=== PATIENT | male | born 1945 | race Caucasian/White ===

== ENCOUNTER 2019-07-09 13:43 | Outpatient (CLI) | payer MEDICARE, OTHER ==
--- NOTE | 2019-07-10 11:10 | DEXA Report ---
Reason: CHRONIC BACK PAIN,OSTEOPOROSIS Procedure Date: 07/09/2019 Accession Number: [id number] / [id number] Procedure: DEX - Dexa Spine and/or Hip CPT Code: Final Report FULL RESULT: EXAM: Dexa Spine and/or Hip DATE: 07/09/2019 2:50 PM CLINICAL HISTORY: CHRONIC BACK PAIN,OSTEOPOROSIS TECHNIQUE: Dual energy x-ray absorptiometry (DXA) was performed on a [employer] System. Regions measured are the AP Spine, femoral neck, and if needed forearm. COMPARISON: None. In accordance with the International Society for Clinical Densitometry (ISCD) guidelines, data from previous exams may be reanalyzed using current recommendations and techniques. This is done to allow a more accurate basis for comparison with the current study. FINDINGS: The data for the lumbar spine is as follows: BMD (g/cm/cm) T-SCORE Z-SCORE REGION L1 1.830 5.6 5.5 L2 2.041 6.7 6.6 L3 2.200 8.0 7.9 L4 2.236 8.3 8.2 TOTAL 2.096 7.3 7.2 NOTE: All evaluable vertebrae are used for classification The data for the hip is as follows: BMD (g/cm/cm) T-SCORE Z-SCORE REGION Neck 1.342 2.1 3.0 TOTAL 1.266 1.1 1.6 NOTE: The femoral neck or total proximal femur, whichever is lowest, is used for classification. IMPRESSION: THE WHO CLASSIFICATION BASED ON THE INTERNATIONAL REFERENCE STANDARD IS NORMAL. THE FRACTURE RISK IS NOT INCREASED. RECOMMENDATION: Patients with diagnosis of osteoporosis or osteopenia should have regular bone mineral density assessment. For those eligible for Medicare, routine testing is allowed once every 2 years. Testing frequency can be increased for patients who have rapidly progressing disease or for those who are receiving medical therapy to restore bone mass. COMMENT: World Health Organization (WHO) definitions for osteoporosis and osteopenia: NORMAL BMD: T-score at -1.0 or higher, fracture risk is low OSTEOPENIA BMD: T-score between -1.0 and -2.5, fracture risk is increased. OSTEOPOROSIS BMD: T-score at -2.5 or lower, fracture risk is high. National Osteoporosis Foundation recommends: 1. Obtain adequate dietary calcium (at least 1200 mg per day) and vitamin D (400-800 international units per day). 2. Participate, as appropriate, in regular weightbearing and muscle-strengthening exercise. 3. Avoid tobacco use and reduce alcohol and caffeine intake. 4. For more detailed information see the website at www.NOF.org.
== END 2019-07-09 13:44 | disposition home or self-care (01) ==
LOC: DI 13:43
PROVIDERS: ATTEND Internal Medicine Infectious Disease
DX: M81.8 Other osteoporosis without current pathological fracture (principal); M54.9 Dorsalgia, unspecified; G89.29 Other chronic pain
CPT/HCPCS: 77080

== ENCOUNTER 2020-12-15 10:53 | Outpatient (CLI) | payer MEDICARE, OTHER ==
[2020-12-15 11:20] LABS: CALCIUM 9.3 mg/dL (8.5-10.3); POTASSIUM 4.2 mmol/L (3.5-5.0)
== END 2020-12-15 10:54 | disposition home or self-care (01) ==
LOC: LAB 10:53
PROVIDERS: ATTEND Internal Medicine Cardiovascular Disease
DX: I15.9 Secondary hypertension, unspecified (principal)
CPT/HCPCS: 36415; 80048

== ENCOUNTER 2022-06-25 13:12 | Outpatient (CLI) | payer MEDICARE, OTHER ==
[2022-06-25 13:40] LABS: BASOPHILS % (AUTO) 0.6 %; EOSINOPHILS # (AUTO) 0.1 10^3/uL (0.0-0.7); EOSINOPHILS % (AUTO) 1.2 %; HCT - HEMATOCRIT 36.3 % (42.0-52.0); HGB - HEMOGLOBIN 11.3 g/dL (14.0-18.0); LYMPHOCYTES # (AUTO) 2.1 10^3/uL (1.5-3.5); LYMPHOCYTES % (AUTO) 41.6 %; MEAN CORPUSCULAR HEMOGLOBIN 21.4 pg (27.0-31.0); MEAN CORPUSCULAR HGB CONC 31.1 g/dL (32.0-36.0); MEAN CORPUSCULAR VOLUME 68.9 fL (80.0-94.0); MEAN PLATELET VOLUME 9.1 fL (7.4-11.4); MONOCYTES # (AUTO) 0.4 10^3/uL (0.0-1.0); MONOCYTES % (AUTO) 7.8 %; NEUTROPHILS # (AUTO) 2.5 10^3/uL (1.5-6.6); NEUTROPHILS % (AUTO) 48.6 %; PLT - PLATELET COUNT 286 10^3/uL (130-450); RED BLOOD COUNT 5.27 10^6/uL (4.70-6.10); RED CELL DISTRIBUTION WIDTH 16.2 % (12.0-15.0); WHITE BLOOD COUNT 5.2 x10^3/uL (4.8-10.8)
[2022-06-25 14:00] LABS: ALBUMIN 4.5 g/dL (3.2-5.5); ALBUMIN/GLOBULIN RATIO 1.7 (1.0-2.2); ALKALINE PHOSPHATASE 55 IU/L (42-121); ALT ALANINE AMINOTRANSFERASE 28 IU/L (10-60); AST ASPARTATE AMINOTRANSFERASE 28 IU/L (10-42); BILIRUBIN,TOTAL 0.6 mg/dL (0.2-1.0); BUN - BLOOD UREA NITROGEN 19 mg/dL (6-20); CALCIUM 9.4 mg/dL (8.5-10.3); CARBON DIOXIDE - CO2 26 mmol/L (21-32); CHLORIDE 104 mmol/L (101-111); CHOL/HDL RATIO 3.8 (<5.0); CHOLESTEROL 220 mg/dL; CREATININE 1.1 mg/dL (0.6-1.2); GFR - MDRD 65 (>89); GLUCOSE 125 mg/dL (70-100); HDL CHOLESTEROL 58 mg/dL; LDL CHOLESTEROL,CALCULATED 105 mg/dL; LDL/HDL RATIO 1.8 (<3.6); POTASSIUM 4.1 mmol/L (3.5-5.0); SODIUM 139 mmol/L (135-145); TOTAL PROTEIN 7.2 g/dL (6.7-8.2); TRIGLYCERIDES 283 mg/dL; VLDL CHOLESTEROL 57 mg/dL
[2022-06-28 10:09] LABS: HIV-1 RNA BY PCR QUANT <20 copies/mL (.)
== END 2022-06-25 13:13 | disposition home or self-care (01) ==
LOC: LAB 13:12
PROVIDERS: ATTEND Internal Medicine Infectious Disease
DX: I10 Essential (primary) hypertension (principal); R35.1 Nocturia; Z21 Asymptomatic human immunodeficiency virus [HIV] infection status
CPT/HCPCS: 36415; 80053; 80061; 81599; 83721; 84153; 85025; 86360; 87536

== ENCOUNTER 2022-07-23 11:43 | Outpatient (CLI) | payer MEDICARE, OTHER ==
--- NOTE | 2022-07-24 10:02 | XRAY Report ---
PROCEDURE: Hip w/Pelvis 1V LT INDICATIONS: L HIP PX TECHNIQUE: AP pelvis with lateral view(s) of the left hip(s). COMPARISON: None. FINDINGS: Bones: No fractures or dislocations. Pelvic ring appears intact. No suspicious bony lesions. Ther e is moderate hip joint degeneration bilaterally. This moderate degenerative disc and facet disease i n the lower lumbar spine. Soft tissues: The visualized bowel gas pattern is normal. No suspicious soft tissue calcifications. IMPRESSION: 1. Mild degenerative joint disease.. Reviewed by: Bekah Daniel MD on 07/24/2022 10:01 AM [facility] Approved by: Bekah Daniel MD on 07/24/2022 10:01 AM [facility] Station ID: [id number]
== END 2022-07-23 23:59 | disposition home or self-care (01) ==
LOC: DI.N 11:43
PROVIDERS: ATTEND Physician Assistant
DX: M16.0 Bilateral primary osteoarthritis of hip (principal)

== ENCOUNTER 2022-09-19 06:38 | Emergency (ER) | payer MEDICARE, OTHER ==
--- NOTE | 2022-09-19 07:01 | ED Physician Documentation ---
History of Present Illness - Stated complaint Stated Complaint: CODE STROKE - Chief complaint Chief Complaint: Neuro - History obtained from History obtained from: Patient, Family (), EMS - Additonal information Additional information: 77-year-old man with past medical history of hypertension hyperlipidemia and HIV, presents with left upper extremity weakness and left facial droop found in the bathroom at 5:30 AM by his spouse. Last seen normal 9:30 PM. Per spouse, patientHas been suffering from sore throat/cold for the past 2 nights has been on NyQuil. Patient normally gets up to go to the bathroom at nighttime but spouse heard a loud thump in the bathroom at 5:30 AM, went in and found the patient crumpled on the floor, confused appearing with urine on himself.Patient rapidly improved in consciousness and was ANO x2 upon EMS arrival but had distinct left facial droop and left upper extremity drift. Upon arrival to the ED EMS reported that his left-sided drift was improving more. Review of Systems Unable to obtain: Other (not obtainable due to patient acuity) PD PAST MEDICAL HISTORY - Past Medical History Cardiovascular: Arrhythmia - Past Surgical History General: Appendectomy - Present Medications Home Medications: Ambulatory Orders Medication Instructions Recorded Confirmed Losartan [Cozaar] 50 mg PO DAILY 08/18/15 09/19/22 Amlodipine Besylate [Norvasc] 10 mg PO DAILY 09/19/22 09/19/22 Emtricitabine/Tenofov Alafenam 1 tab PO DAILY 09/19/22 09/19/22 [Descovy 200-25 mg Tablet] Fenofibrate [Tricor] 48 mg PO DAILY 09/19/22 09/19/22 - Allergies Allergies/Adverse Reactions: Allergies Allergy/AdvReac Type Severity Reaction Status Date / Time No Known Drug Allergies Allergy Verified 09/19/22 06:57 - Social History Does the pt smoke?: No Smoking Status: Never smoker Does the pt drink ETOH?: Yes Does the pt have substance abuse?: No - Immunizations Immunizations are current?: Yes PD ED PE NORMAL - Vitals Vital signs reviewed: Yes - General General: Alert and oriented X 3, No acute distress, Well developed/nourished - HEENT HEENT: Atraumatic, PERRL, EOMI - Cardiac Cardiac: RRR - Respiratory Respiratory: No respiratory distress, Clear bilaterally - Derm Derm: Normal color, Warm and dry - Neuro Neuro: Alert and oriented X 3, Other (NIHSS 2 - L facial droop, LUE drift. ) Eye Opening: Spontaneous Motor: Obeys Commands Verbal: Oriented GCS Score: 15 - Psych Psych: Normal mood, Normal affect Results - Vitals Vitals: Vital Signs - 24 hr 09/19/22 06:41 Temperature 36.9 C Heart Rate 63 Respiratory 14 Rate Blood Pressure 124/56 L O2 Saturation 98 Oxygen O2 Source Room air - Labs Labs: Laboratory Tests 09/19/22 09/19/22 06:59 06:59 WBC 6.4 RBC 4.98 Hgb 10.6 L Hct 33.8 L MCV 67.9 L MCH 21.3 L MCHC 31.4 L RDW 16.2 H Plt Count 228 MPV 9.4 Neut # (Auto) 4.8 Lymph # (Auto) 1.0 L [place] # (Auto) 0.5 Eos # (Auto) 0.0 Baso # (Auto) 0.0 Absolute Nucleated RBC 0.00 Nucleated RBC % 0.0 PT 12.2 INR 1.1 PD Medical Decision Making - ED course ED course: d/w Dr. Venegas, telestroke - patient not a candidate for tpa or thrombectomy given low NIHSS and improving symptoms. Consider possible seizure as possibility. Outpatient EEG may be indicated. MRI with and without contrast, also MRA recommended. Patient endorsed to Dr. Osman Babin for further management and care. - Critical Care Time(min): 30 Time Includes: Direct patient care, Review records, Reassess patient, Document care, Coordinate care, Medical consult (d/w neurology), Family consult for tx dec Data interpretation: Labs
[2022-09-19 07:10] LABS: BASOPHILS % (AUTO) 0.5 %; EOSINOPHILS % (AUTO) 0.2 %; HCT - HEMATOCRIT 33.8 % (42.0-52.0); HGB - HEMOGLOBIN 10.6 g/dL (14.0-18.0); LYMPHOCYTES % (AUTO) 15.9 %; MEAN CORPUSCULAR HEMOGLOBIN 21.3 pg (27.0-31.0); MEAN CORPUSCULAR HGB CONC 31.4 g/dL (32.0-36.0); MEAN CORPUSCULAR VOLUME 67.9 fL (80.0-94.0); MEAN PLATELET VOLUME 9.4 fL (7.4-11.4); MONOCYTES # (AUTO) 0.5 10^3/uL (0.0-1.0); MONOCYTES % (AUTO) 8.2 %; NEUTROPHILS # (AUTO) 4.8 10^3/uL (1.5-6.6); NEUTROPHILS % (AUTO) 74.9 %; PLT - PLATELET COUNT 228 10^3/uL (130-450); RED BLOOD COUNT 4.98 10^6/uL (4.70-6.10); RED CELL DISTRIBUTION WIDTH 16.2 % (12.0-15.0); WHITE BLOOD COUNT 6.4 x10^3/uL (4.8-10.8)
[2022-09-19] MEDS ORDERED: ASPIRIN 325 MG TABLET PO STA (07:16)
[2022-09-19 07:18] LABS: INR 1.1 (0.8-1.2); PT - PROTHROMBIN TIME 12.2 secs (9.9-12.6)
[2022-09-19 07:26] LABS: ALBUMIN 3.9 g/dL (3.2-5.5); ALBUMIN/GLOBULIN RATIO 1.3 (1.0-2.2); BILIRUBIN,TOTAL 0.6 mg/dL (0.2-1.0); CALCIUM 8.4 mg/dL (8.5-10.3); CREATININE 1.4 mg/dL (0.6-1.2); POTASSIUM 3.9 mmol/L (3.5-5.0); TOTAL PROTEIN 6.9 g/dL (6.7-8.2)
[2022-09-19] MEDS ORDERED: TETANUS/DIPHTHERIA/PERTUSSIS 0.5 ML SYRINGE IM ONE (07:29)
--- NOTE | 2022-09-19 08:32 | CT Report ---
PROCEDURE: Head W/O Stroke Protocol INDICATIONS: Neuro deficit, acute, stroke suspected TECHNIQUE: Noncontrast 4.5 mm thick angled axial sections acquired from the foramen magnum to the vertex, with c oronal reformats. For radiation dose reduction, the following was used: automated exposure control, adjustment of mA and/or kV according to patient size. COMPARISON: FINDINGS: Image quality: Artifact involving the posterior fossa.. CSF spaces: Basal cisterns are patent. No extra-axial fluid collections. Ventricles are normal in size and shape. Brain: No midline shift. No intracranial masses or hemorrhage. Wagner-white matter interface is norm al. Age-related volume loss and small vessel ischemic change. Skull and face: Calvarium and visualized facial bones are intact, without suspicious lesions. Sinuses: Visualized sinuses and mastoids are clear. IMPRESSION: No evidence acute intracranial abnormality. This study fulfills neurological imaging criteria for inclusion or exclusion of acute stroke therapie s based on available published neurological imaging guidelines. Findings are concordant with preliminary interpretation provided by [facility]. At the t hugh of preliminary interpretation, the preliminary interpreting radiologist had a phone discussion wi th the referring ER attending on 09/19/2022 at 0713 hours Reviewed by: Alessio Justice MD on 09/19/2022 8:31 AM PST Approved by: Alessio Justice MD on 09/19/2022 8:31 AM PST Station ID: [id number]
--- NOTE | 2022-09-19 09:04 | CT Report ---
PROCEDURE: ANGIO NECK W INDICATIONS: Left-sided weakness CONTRAST: 80ml Omnipaque 300 TECHNIQUE: After the administration of intravenous contrast, 1.5 mm axial sections acquired from the aortic arch to the [place] of [place]. Coronal 3-D maximum intensity projection (MIP) and/or volume rendering ref ormats were then performed. For radiation dose reduction, the following was used: automated exposur e control, adjustment of mA and/or kV according to patient size. COMPARISON: None. FINDINGS: There is no opacification of the arterial vasculature. Moderate cervical spine degenerative changes w ithout acute finding. No obvious unenhanced evidence of mass lesion or cervical lymphadenopathy. No a cute finding in the partially imaged lung apices. Mild emphysematous changes. IMPRESSION: Nondiagnostic arterial vascular examination with no opacification of the aortic arch, carotid circula tion, or vertebral arteries due to poorly timed image acquisition related to bolus triggering. Reviewed by: Antonio Hurt MD on 09/19/2022 9:02 AM PST Approved by: Antonio Hurt MD on 09/19/2022 9:02 AM PST Station ID: [id number]
--- NOTE | 2022-09-19 09:06 | CT Report ---
PROCEDURE: ANGIO HEAD W/WO INDICATIONS: LUE drift, L facial droop CONTRAST: 80ml Omnipaque 300 TECHNIQUE: Precontrast 4.5 mm thick angled axial sections acquired from the foramen magnum to the vertex. Afte r the administration of intravenous contrast, 1 mm thick sections acquired through the [place] of [place] is. Postcontrast 4.5 mm thick sections then re-acquired from the foramen magnum to the vertex. 3-di mensional wacfrbv-rftzlpcfz-jpmzkljcax (MIP) and/or volume rendering reformats were acquired of the c entral intracranial vasculature. For radiation dose reduction, the following was used: automated ex posure control, adjustment of mA and/or kV according to patient size. COMPARISON: None FINDINGS: CSF spaces: Ventricles are normal in size and shape. Basal cisterns are patent. No extra-axial flu id collections. Brain: No midline shift. No intracranial bleeds or masses. Wagner-white matter interface appears int act. Skull and face: Calvarium and facial bones appear intact, without suspicious lesions. Sinuses: Visualized sinuses and mastoids are clear. IMPRESSION: Nondiagnostic arterial vascular study due to poorly timed image acquisition relative to contrast bolu s. No acute intracranial finding. Reviewed by: Antonio Hurt MD on 09/19/2022 9:04 AM [facility] Approved by: Antonio Hurt MD on 09/19/2022 9:04 AM PST Station ID: [id number]
[2022-09-19] MEDS ORDERED: iohexoL-300 100 ML VIAL IVP ONE (09:18)
[2022-09-19] MEDS ORDERED: GADOBUTROL 15 MMOL/15 ML VIAL ONE (11:38)
--- NOTE | 2022-09-19 13:56 | MRI Report ---
PROCEDURE: BRAIN W/WO INDICATIONS: L side weak CONTRAST: 10.5ml gadavist TECHNIQUE: Noncontrast axial T1 spin echo, axial T2 fast spin echo, sagittal and axial FLAIR, coronal T2 fast sp in echo, axial gradient echo, axial diffusion and ADC through the brain. After the administration of contrast, axial and coronal T1 spin echo with fat saturation through the brain. COMPARISON: CT head, CTA head and neck angiogram from the same date. FINDINGS: Image quality: Excellent. CSF spaces: Basal cisterns are patent. No extra-axial fluid collections. Ventricles are normal in size and shape. Brain: No midline shift. No intracranial bleeds or masses. No abnormal intracranial enhancement. There is cerebral volume loss for age. There is periventricular white matter chronic small vessel is chemic change. The brainstem appears normal. Diffusion-weighted images demonstrate no acute ischemi c insults. No chronic ischemic insults. Normal intravascular flow voids are present. Skull and face: Calvarial marrow is normal in signal. Orbits appear normal. Sinuses: Sinuses and mastoids appear clear. IMPRESSION: Unremarkable brain MRI with and without contrast. No evidence acute stroke, hemorrhage, or mass. Reviewed by: Alessio Justice MD on 09/19/2022 1:55 PM PST Approved by: Alessio Justice MD on 09/19/2022 1:55 PM PST Station ID: [id number]
--- NOTE | 2022-09-19 14:04 | MRI Report ---
PROCEDURE: ANGIO HEAD WO INDICATIONS: LUE and L facial weakness TECHNIQUE: Noncontrast axial 3-D tgsh-kp-gavkzt MR angiogram, with 3-dimensional maximum intensity projection (M IP) reformats of the internal carotid arteries and posterior circulation then performed. COMPARISON: Brain MRI with and without contrast from the same date.. FINDINGS: Image quality: Excellent. Anterior circulation: Intracranial internal carotid arteries demonstrate normal size and intralumina l flow signal. The flow within the paired anterior cerebral arteries is normal and symmetric. The f low within the middle cerebral arteries is normal and symmetric. The anterior communicating artery i s seen. No stenoses, occlusions, or aneurysms. Posterior circulation: Visualized portions of the vertebral arteries demonstrate normal caliber, and join to form a normal appearing basilar artery. The flow within the posterior cerebral arteries is normal and symmetric. No stenoses, occlusions, or aneurysms. MR venography is unremarkable. IMPRESSION: Unremarkable MR angiography of the head. No stenosis, aneurysm, focal filling defect, or occlusion. Reviewed by: Alessio Justice MD on 09/19/2022 2:03 PM PST Approved by: Alessio Justice MD on 09/19/2022 2:03 PM PST Station ID: [id number]
--- NOTE | 2022-09-19 14:05 | MRI Report ---
PROCEDURE: ANGIO NECK W/WO INDICATIONS: L sided weakness CONTRAST: 10.5ml gadavist TECHNIQUE: Axial and sagittal balanced GE through the neck. Coronal dynamic MRA after the administration of con trast in the arterial and venous phases, with rotating 3-dimensional maximum intensity projection (MD P) reformats constructed from subtraction images. COMPARISON: None. FINDINGS: Image quality: Excellent. Carotid system: Great vessels demonstrate a conventional anatomy as they arise from the aortic arch. The origins of the common carotid arteries appear normal. The calibers and courses of the common c arotid arteries are likewise normal. The carotid bifurcations appear normal bilaterally. The international representative al carotid arteries are widely patent up to the [place] of [place]. Posterior circulation: The origins of the vertebral arteries are unremarkable. The more superior po rtions of the vertebral arteries demonstrate normal course and caliber. Vertebral arteries join to f orm a normal appearing basilar artery. Miscellaneous: Subclavian arteries are patent throughout. Pre-contrast images through the neck demo nstrate no soft tissue abnormalities. IMPRESSION: Unremarkable MR angiogram of the neck. Widely patent carotids. Reviewed by: Alessio Justice MD on 09/19/2022 2:04 PM PST Approved by: Alessio Justice MD on 09/19/2022 2:04 PM PST Station ID: [id number]
--- NOTE | 2022-09-19 15:10 | ED Physician Documentation ---
ED Addendum - Addendum Addendum: 1500 - I did review the case with the hospitalist, Dr. Valladares. There are no inpatient beds available and patient has had his work-up completed through the emergency department. Given his ABCD 2 score is 4, she agrees with plan for dual antiplatelet therapy with aspirin and Plavix. She also agrees with high- dose statin and. I did Also ask about this medication because he is on fenofibrate. She advises that he needs close follow-up with his PCP for recheck of his labs in about a week. 09/19/22 15:07 Patient remains at his baselineWith no recurrence of his symptoms. NIH is 0 on my repeat neuro exam. Patient has been able to ambulate in his room without any episodes. His vital signs have been stable. Reviewed his MRI with him and his which is unremarkable. Echo has been completed but study results and I will be available for few days. His hospital attendant Dr. Lisa leone does come here per patient. Recommend close follow-up with PCP and hospital attendant. Will start on medications for possible TIA. Understands may need further evaluation for other causes such as syncope or seizure.Advised not to swim or take a bath alone. I did review the plan of medications with dual antiplatelet therapy. I advised on risk factors for these medications. He is aware of need for follow-up with his PCP as he is going to be starting a statin and will need recheck of his labs in 1 week. EKG: Time 0700; Rate 63, sinus rhythm, no STEMI, QTC 447, no ST depressions 09/19/22 17:23 Departure - Departure Disposition: 01 Home, Self Care Clinical Impression: TIA (transient ischemic attack), Syncope Condition: Stable Instructions: ED Transient Ischemic Attack Follow-Up: Herbert Hernandez MD [Primary Care Provider] - Kyle Brown MD [Provider Admit Priv/Credential] - Prescriptions: Atorvastatin Calcium [Lipitor] 80 mg PO DAILY #30 tablet Clopidogrel [Plavix] 75 mg PO DAILY #30 tablet Aspirin [[place] Aspirin] 81 mg PO DAILY #30 ea Comments: You were evaluated for concerns Of strokelike symptoms after a fainting spell. It Is unclear what has caused your symptoms but it could be from a mini stroke. Your MRI results are negative and do not show a stroke. Your echo is pending I would recommend you reach out to your hospital attendant to follow-up on those results. We have started you on aspirin and Plavix as well as a statin. You do need close follow-up with your primary care doctor and hospital attendant. You should have repeat labs in approximately 1 week as you are starting a statin. Given that there is a possibility that your symptoms were caused by a seizure you may need a referral for an EEG. I would not recommend driving, swimming alone or taking a bath alone until you are cleared by your doctor or neurologist. Please return to the emergency department with any worsening symptoms. Discharge Date/Time: 09/19/22 15:43
[2022-09-19] MEDS ORDERED: CLOPIDOGREL 300 MG TABLET PO STA (15:19)
[2022-09-19] MEDS ORDERED: ATORVASTATIN 40 MG TABLET PO STA (15:19)
[2022-09-19 15:43] VITALS: BP 148/75
[2022-09-19] MEDS ORDERED: GADOBUTROL 15 MMOL/15 ML VIAL IVP ONE (16:59)
== END 2022-09-19 15:43 | disposition home or self-care (01) ==
LOC: EDUNIT# → ED 06:38
DX: G45.9 Transient cerebral ischemic attack, unspecified (principal); R55 Syncope and collapse; I10 Essential (primary) hypertension; E78.5 Hyperlipidemia, unspecified; B20 Human immunodeficiency virus [HIV] disease
CPT/HCPCS: 36415; 70450; 70496; 70498; 70544; 70549; 70553; 80053; 83690; 84145; 85025; 85610; 90471; 90715; 93005; 93306; 99284; 99291; A9270; A9585; Q9967

== ENCOUNTER 2023-02-07 08:00 | Outpatient (CLI) | payer MEDICARE, OTHER ==
--- NOTE | 2023-02-07 11:19 | XRAY Report ---
PROCEDURE: Hip 2 View LT INDICATIONS: LEFT HIP PAIN TECHNIQUE: 2 views of the hip were acquired. COMPARISON: None. FINDINGS: Bones: No fractures or dislocations. No suspicious bony lesions. Nonuniform joint space narrowing with associated osteophytosis. Soft tissues: No suspicious soft tissue calcifications or masses. IMPRESSION: No acute bony abnormality. 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 Reviewed by: Klever Pulido on 02/07/2023 11:17 AM PDT Approved by: Klever Pulido on 02/07/2023 11:17 AM PDT Station ID: [id number]
== END 2023-02-07 23:59 | disposition home or self-care (01) ==
LOC: DI.WOS 08:00
PROVIDERS: ATTEND Orthopaedic Surgery
DX: M16.12 Unilateral primary osteoarthritis, left hip (principal)

== ENCOUNTER 2023-05-07 10:53 | Outpatient (CLI) | payer MEDICARE, OTHER ==
--- NOTE | 2023-05-07 14:09 | XRAY Report ---
PROCEDURE: Pelvis 1 View INDICATIONS: HIP PAIN TECHNIQUE: 1 view(s) of the pelvis acquired. COMPARISON: 02/07/2023 FINDINGS: Bones: Mild to moderate degenerative changes bilaterally of the hips. No displaced fracture or dislo cation. Partially seen lumbosacral degenerative changes. Soft tissues: No suspicious calcifications. IMPRESSION: Mild to moderate hip degenerative changes. If there is high concern for further derangement, consider MRI evaluation. Reviewed by: Shen Cooley MD on 05/07/2023 2:07 PM PDT Approved by: Shen Cooley MD on 05/07/2023 2:07 PM PDT Station ID: [id number]
== END 2023-05-07 10:54 | disposition home or self-care (01) ==
LOC: DI 10:53
PROVIDERS: ATTEND Nurse Practitioner Family
DX: M16.0 Bilateral primary osteoarthritis of hip (principal)